=== PATIENT | female | born 1965 | race Caucasian/White ===

== ENCOUNTER 2020-09-18 05:47 | Outpatient (RCR) | payer MEDICARE, BC ==
[2020-09-18] VITALS (8 sets, daily range): BP systolic 108–123; BP diastolic 41–60
[~2020-09-18] VITALS: Ht 165.1 cm; Wt 86.2 kg
[2020-09-18] MEDS ORDERED: Succinylcholine 20mg/ml 10ml vial ONE ×2 (05:48)
[2020-09-18] MEDS ORDERED: Methohexita Syr 100mg/10ml IVP ONE ×2 (05:48)
[2020-09-18] MEDS ORDERED: NS 500ML ONE ×2 (05:48)
[2020-09-18] MEDS ORDERED: Lidocaine 2% 100mg/5ml Carp IV PRN (10:39)
[2020-09-18] MEDS ORDERED: Atropine Sulfate 0.4mg/ml inj IVP PRN (10:39)
[2020-09-27] VITALS (7 sets, daily range): BP systolic 110–155; BP diastolic 53–134
[2020-09-27] MEDS ORDERED: Lidocaine 2% 100mg/5ml Carp IV PRN (11:34)
[2020-09-27] MEDS ORDERED: Atropine Sulfate 0.4mg/ml inj IVP PRN (11:34)
== END 2020-10-01 | disposition home or self-care (01) ==
LOC: EDSEX → ECT 05:47
DX: F25.0 Schizoaffective disorder, bipolar type (principal); I12.9 Hypertensive chronic kidney disease with stage 1 through stage 4 chronic kidney disease, or unspecified chronic kidney disease; N18.9 Chronic kidney disease, unspecified; K82.9 Disease of gallbladder, unspecified; Z88.0 Allergy status to penicillin; Z88.2 Allergy status to sulfonamides
CPT/HCPCS: 90870; J0330; J7040

== ENCOUNTER 2020-10-13 05:40 | Outpatient (RCR) | payer MEDICARE, BC ==
[2020-10-13] VITALS (7 sets, daily range): BP systolic 128–156; BP diastolic 63–77
[~2020-10-13] VITALS: Ht 30.5 cm; Wt 0.5 kg
[2020-10-13] MEDS ORDERED: Succinylcholine 20mg/ml 10ml vial ONE (05:41)
[2020-10-13] MEDS ORDERED: Methohexita Syr 100mg/10ml IVP ONE (05:41)
[2020-10-13] MEDS ORDERED: NS 500ML ONE (05:41)
[2020-10-25] VITALS (7 sets, daily range): BP systolic 103–198; BP diastolic 51–65
[2020-10-25] MEDS ORDERED: Succinylcholine 20mg/ml 10ml vial ONE (06:00)
[2020-10-25] MEDS ORDERED: Methohexita Syr 100mg/10ml IVP ONE (06:00)
== END 2020-10-29 | disposition home or self-care (01) ==
LOC: ECT 05:40
DX: F25.0 Schizoaffective disorder, bipolar type (principal)
CPT/HCPCS: 90870; J0330; J7040